=== PATIENT | female | born 1990 | race African-American/Black ===

== ENCOUNTER 2017-04-12 17:07 | Outpatient (CLI) | payer OTHER ==
[~2017-04-12] VITALS: Ht 162.6 cm; Wt 77.3 kg
[2017-04-12 17:23] VITALS: Ht 162.6 cm; Wt 77.3 kg
[2017-04-12 17:24] VITALS: BP 130/79; PULSE 88; RESP 18
[2017-04-12] MEDS ORDERED: PNV11TAB PO (17:27)
[2017-04-12] MEDS ORDERED: ALBU18HF INHALATION (17:27)
--- NOTE | 2017-04-12 18:21 | RADRPT ---
PROCEDURE: US OB. CLINICAL INDICATION: Limited care TECHNIQUE: Multiple sonographic images of the pelvis were obtained. The images were reviewed on a PACS workstation. COMPARISON: No prior studies are available for comparison. FINDINGS: There is a single viable intrauterine gestation. Cardiac activity is present with 168 beats per min olga lidia. There is a cephalic presentation. Measurements were made in order to determine age. The results are as follows: BPD =9.5 cm HC =33.61 cm AC =34.62 cm FL =7.44 cm. Estimated gestational age of approximately 38 weeks 3 days. The estimated date of delivery is 04/23/2017 The EFW = 3496 g 71.1% . The placenta is anterior grade 1 to II. There is no evidence for an abruption. There is a normal amount of amniotic fluid IMPRESSION: Single viable intrauterine gestation of approximately 38 weeks 3 days. The estimated date of delive ry is 04/23/2017 . .Maxwell Deejsus MD, MD Date Time Electronically viewed and signed by .Maxwell Dejesus MD, on 04/12/2017 18:20 .W/
--- NOTE | 2017-04-12 18:21 | RADRPT ---
PROCEDURE: US OB. CLINICAL INDICATION: Limited care TECHNIQUE: Multiple sonographic images of the pelvis were obtained. The images were reviewed on a PACS workstation. COMPARISON: No prior studies are available for comparison. FINDINGS: There is a single live intrauterine . cardiac activity is identified at a rate of 15 2 beats per minute. presentation is cephalic. Placenta is anterior grade 1 to II Biophysical profile score is as follows: Breathing 2 Movements 2 Tone 2 Fluid volume 2 Amniotic fluid index = 17.4 cm Total biophysical profile score = 8/ IMPRESSION: Biophysical profile score = 88 RPTAT: HH .Maxwell Dejesus MD, MD Date Time Electronically viewed and signed by .Maxwell Dejesus MD, on 04/12/2017 18:21 .W/
--- NOTE | 2017-04-12 18:47 | PN ---
Triage Information Date/Time Reason for visit: Uterine contractions Weeks of Gestation 38+ /Para .. Diabetes: none Hypertention: none Objective Vital Signs Date Time Temp Pulse Resp B/P Pulse Ox O2 Delivery O2 Flow Rate FiO2 04/12/17 17:24 98.3 88 18 130/79 Heart Rate: 140's Contractions: 6-10 Minutes Apart Disposition: Discharge Assessment/Plan Irregular nCTXs No cervical change patient has care but inconsistent. NSt reassuring BPP 12/08 --->discharge with precautions --->return to Hospital in 2 days for NST BPP --->labor precautions discussed FLORENCE GUNTER M.D. Apr 12, 2017 18:47
--- NOTE | 2017-04-12 19:02 | TRIAGE ---
OB Triage Datetime Report Generated by CPN: 04/12/2017 19:02 Datetime: 04/12/2017 18:42 Stage of : OB Triage Datetime: 04/12/2017 18:37 Labor Evaluation Frequency: 7-8 Monitor Mode: External Duration (sec)2399: 50-60 Quality: Mild Resting Tone [place]: Relaxed Heart Rate FHR Baseline Rate: 135 Monitor Mode: External US Variability: Moderate 6-25 bpm Accelerations: 10X10 Decelerations: None Category: Category I Pain Assessment Pain Scale: 5 Pain Presence: Intermittent Pain Type: Cramping Pain Location: Abdomen Pain Goal: 3 Pain Relief Measures: Comfort Measures Datetime: 04/12/2017 17:40 Vaginal Exam Dilatation (cms): 0.5 Effacement (%): 50 Station: -2 Exam By: Mara GARDUNO Vaginal Bleeding: None Cervix, Consistency: Soft Cervix, Position: Posterior Presentation 'A': Cephalic Datetime: 04/12/2017 17:28 Stage of : OB Triage Datetime: 04/12/2017 17:13 Stage of : OB Triage Assessment Type: Triage EGA: 38.1 Maternal Assessment Level of Consciousness: Fully Conscious DTR's/Clonus: DTRs 2+; No Clonus Headache: Denies Blurred Vision: No Respiratory Effort: Unlabored; Regular Rhythm; Equal Expansion Breath Sounds, Left: Clear and Equal Breath Sounds, Right: Clear and Equal Nausea/Vomiting: Denies RUQ Epigastric Pain: Denies Facial Edema: None Temperature Route: Axillary Fall Risk Assessment History of Falling: (0) No Secondary Diagnosis: (0) No Ambulatory Aid: (0) Bedrest/Nurse Assist IV Therapy: (0) No Gait: (0) Normal/Bedrest/Immobile Mental Status: (0) Oriented to Own Ability Fall Score: 0 Fall Risk Score Definition: No Risk: No action required Labor Evaluation Frequency: 0 Monitor Mode: External Resting Tone [place]: Relaxed Heart Rate FHR Baseline Rate: 145 Monitor Mode: External US Variability: Moderate 6-25 bpm Accelerations: 10X10 Decelerations: None Category: Category I Pain Assessment Pain Scale: 7 Pain Presence: Intermittent Pain Type: Cramping Pain Location: Abdomen Pain Goal: 3 Pain Relief Measures: Comfort Measures Datetime: 04/12/2017 17:12 Time of Arrival: 04/12/2017 17:00 Arrived By: Ambulance Arrived From: Home Chief Complaint: C/O UC'S Q 8 MIN SINCE 2 PM, DENIES BLEEDING, OR LEAKING Movement: Present Contractions: Irregular Rupture of Membranes: Denies Vaginal Bleeding: None Vaginal Discharge: Denies Recent Sexual Intercouse: Denies Abdominal Trauma: Not Applicable Time Provider Notified: 04/12/2017 17:28 Provider Notified: phillip Initial Plan: MONITOR, VE, bpp/efw
== END 2017-04-12 18:52 | disposition home or self-care (01) ==
LOC: OBT 17:07 → L-D 17:10 → OBT 18:52
PROVIDERS: ATTEND Obstetrics & Gynecology
DX: O62.9 Abnormality of forces of labor, unspecified (principal); Z3A.38 38 weeks gestation of pregnancy
CPT/HCPCS: 76815; 76818; Z7500; G0463

== ENCOUNTER 2017-04-14 18:16 | Outpatient (CLI) | payer OTHER ==
[~2017-04-14] VITALS: Ht 154.9 cm; Wt 81.0 kg
[~2017-04-14 18:16] MED LIST: ALBU18HF INHALATION; PNV11TAB PO
[2017-04-14 18:38] VITALS: Ht 154.9 cm; Wt 81.0 kg
[2017-04-14 18:39] VITALS: BP 119/75; PULSE 94; RESP 18
--- NOTE | 2017-04-14 21:59 | RADRPT ---
PROCEDURE: Obstetrical ultrasound for biophysical profile CLINICAL INDICATION: Biophysical profile. . TECHNIQUE: Obstetrical ultrasound of the uterus for biophysical profile. Transabdominal views are obtained. COMPARISON: US PELVIS 04/12/2017 FINDINGS: Single intrauterine gestation. Presentation: Cephalic. Placenta: Anterior. No evidence of placental abruption. No evidence of placenta previa. breathing movement = 2/2 tone = 2/2 motion = 2/2 ESME = 2/2 ESME = 17.5 cm heart rate: 129 beats per minute IMPRESSION: Single intrauterine gestation. Biophysical profile 12/08 RPTAT: AADD .Ryley Howe MD, MD Date Time Electronically viewed and signed by .Ryley Howe MD, on 04/14/2017 21:59 .B/
[2017-04-14 22:57] LABS: BARBITURATES Negative (NEGATIVE); BENZODIAZEPINES Negative (NEGATIVE); CANNABINOIDS Negative (NEGATIVE); COCAINE Negative (NEGATIVE); OPIATES Negative (NEGATIVE)
--- NOTE | 2017-04-15 04:28 | TRIAGE ---
OB Triage Datetime Report Generated by CPN: 04/15/2017 04:28 Datetime: 04/14/2017 23:36 Stage of : OB Triage Heart Rate FHR Baseline Rate: 135 Monitor Mode: External US FHR Baseline Changes: No Baseline Change Variability: Moderate 6-25 bpm Accelerations: 15X15 Decelerations: None Pain Assessment Pain Scale: 2 Pain Presence: Intermittent Pain Type: Cramping Datetime: 04/14/2017 22:41 Stage of : OB Triage Monitor Mode: External Quality: Mild Pattern: Normal: <= 5 Contractions in 10 Minutes Resting Tone [place]: Relaxed Heart Rate FHR Baseline Rate: 130 Monitor Mode: External US Datetime: 04/14/2017 21:30 Pain Presence: Intermittent Pain Type: Cramping Pain Location: Abdomen Datetime: 04/14/2017 20:37 Monitor Mode: External Quality: Mild Pattern: Normal: <= 5 Contractions in 10 Minutes Resting Tone [place]: Relaxed Heart Rate FHR Baseline Rate: 140 Monitor Mode: External US FHR Baseline Changes: No Baseline Change Variability: Moderate 6-25 bpm Accelerations: 15X15 Decelerations: None Category: Category I Vaginal Exam Dilatation (cms): 2.0 Effacement (%): 80 Station: -2 Exam By: Azeb Art Membrane Status: Intact Vaginal Bleeding: Scant Cervix, Consistency: Soft Cervix, Position: Posterior Presentation 'A': Cephalic Datetime: 04/14/2017 20:28 Monitor Mode: External Resting Tone [place]: Relaxed Monitor Mode: External US Datetime: 04/14/2017 19:38 Stage of : OB Triage Monitor Mode: External Quality: Mild Resting Tone [place]: Relaxed Heart Rate FHR Baseline Rate: 150 Monitor Mode: External US Pain Assessment Pain Scale: 2 Pain Presence: Intermittent Pain Type: Cramping Pain Location: Abdomen Datetime: 04/14/2017 18:27 Labor Evaluation Frequency: 0 Monitor Mode: External Heart Rate FHR Baseline Rate: 135 Monitor Mode: External US Variability: Moderate 6-25 bpm Accelerations: 15X15 Decelerations: None Category: Category I Pain Assessment Pain Scale: 3 Pain Presence: Intermittent Pain Type: Contraction Pain Location: Abdomen Pain Goal: 3 Pain Relief Measures: Comfort Measures Datetime: 04/12/2017 18:57 Time of Arrival: 04/14/2017 18:05 EGA: 38.3 Arrived By: Ambulatory Arrived From: Home Chief Complaint: 2 x /hr; f/u from 2 days ago MD then told pt to come back to monitor uc's Movement: Present Vaginal Bleeding: None Abdominal Trauma: Not Applicable Patient Complaints: Contractions Time Provider Notified: 04/14/2017 18:30 Provider Notified: ARDALAN Initial Plan: efm Datetime: 04/12/2017 17:13 EGA: 38.1 Fall Risk Assessment Fall Score: 0 Fall Risk Score Definition: No Risk: No action required
--- NOTE | 2017-04-15 06:35 | PN ---
Triage Information Date/Time April 15, 2017 Reason for visit: Uterine contractions Weeks of Gestation 38 weeks and 3 days /Para 1 para 0 Diabetes: none Hypertention: none Additional information 26-year-old with IUP at 38 weeks and 3 days with limited care and no care since last month due to moving to different places presented with complaint of contractions. She denies any leaking of fluid, vaginal bleeding or decreased movement. Patient reports she had regular care prior to March and has her labs available. She states that she had a copy of her labs and her email and can provided to us. She reports that she completed gestational glucose testing that was negative. She denies any complication during her course. She was noted to centimeter dilated 80% -2. Had some irregular contractions. Objective Vital Signs Date Time Temp Pulse Resp B/P Pulse Ox O2 Delivery O2 Flow Rate FiO2 04/14/17 18:39 98.1 94 18 119/75 99 Room Air Heart Rate: 130's Contractions: < 5 Minutes Apart Exam General appearance: Alert and oriented 4. Patient does not appear to be in any acute distress. Abdomen: Soft, gravid fundal height consistent with gestational age. NST: Category 1, irregular contractions noted every 45 minutes Cervical exam 2/80%/-2, vertex During observation the cervical change noted Results/Medications Results 24 hrs Laboratory Tests Test 04/14/17 20:00 Urine Opiates Screen Negative Urine Barbiturates Negative Urine Amphetamines Screen Negative Urine Benzodiazepines Screen Negative Urine Cocaine Screen Negative Urine Cannabinoids Negative Imaging Results PROCEDURE: Obstetrical ultrasound for biophysical profile CLINICAL INDICATION: Biophysical profile. . TECHNIQUE: Obstetrical ultrasound of the uterus for biophysical profile. Transabdominal views are obtained. COMPARISON: US PELVIS 04/12/2017 FINDINGS: Single intrauterine gestation. Presentation: Cephalic. Placenta: Anterior. No evidence of placental abruption. No evidence of placenta previa. breathing movement = 2/2 tone = 2/2 motion = 2/2 ESME = 2/2 ESME = 17.5 cm heart rate: 129 beats per minute IMPRESSION: Single intrauterine gestation. Biophysical profile 12/08 Disposition: Discharge Assessment/Plan IUP at 38 weeks and 3 days Irregular contractions No evidence of labor. 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 Next Patient verbalized understanding ADRIEN KO MD Apr 15, 2017 06:34
== END 2017-04-15 00:54 | disposition home or self-care (01) ==
LOC: OBT 18:16 → L-D 18:19 → OBT 04-15 00:54
PROVIDERS: ATTEND Obstetrics & Gynecology Obstetrics
DX: O62.9 Abnormality of forces of labor, unspecified (principal); Z3A.38 38 weeks gestation of pregnancy
CPT/HCPCS: 76818; 80307; Z7500; G0463